=== PATIENT | female | born 1940 | race American Indian/Alaskan Native ===

== ENCOUNTER 2017-06-26 09:25 | Outpatient (CLI) | payer MEDICARE ==
--- NOTE | 2017-06-26 14:56 | Mammography Report ---
BILATERAL DIGITAL SCREENING MAMMOGRAM with CAD: 06/26/17 09:25:00 CLINICAL: Routine screening. COMPARISON:06/21/16 FINDINGS: The breasts are almost entirely fatty. No mass, architectural distortion or suspicious calcifications. IMPRESSION: No mammographic evidence of malignancy. BI-RADS CATEGORY: 2 - - Benign RECOMMENDATION: Routine mammographic screening in one year. COMMENT: Patient follow-up letters are generated by our [employer] application.
== END 2017-06-26 09:26 | disposition home or self-care (01) ==
LOC: SPVWC 09:25
PROVIDERS: ATTEND Internal Medicine
DX: Z12.31 Encounter for screening mammogram for malignant neoplasm of breast (principal)
CPT/HCPCS: 77067; G0202

== ENCOUNTER 2017-07-08 08:43 | Outpatient (CLI) | payer MEDICARE ==
--- NOTE | 2017-07-08 10:54 | Cat Scan Report ---
CT CHEST WITH CONTRAST: 07/08/17 08:43:00 CLINICAL: Abnormal chest x-ray. Comparison: None available. TECHNIQUE: Volumetric acquisition and 1.25 mm scan reconstructions after the uneventful intravenous injection of 100cc Omnipaque 300. Consent was obtained prior to the administration of contrast. FINDINGS: . No pulmonary nodule or mass. Mild thickening of the right major fissure. Normal heart, aorta and pulmonary vasculature. No hilar or mediastinal lymphadenopathy. No pleural effusion. The right hemidiaphragm is elevated and a significant portion of the liver is in the chest. The liver has an unusual shape with a large anterior left secondary to atrophy of segments 4A and 4B of the left lobe and segment 8 of the right lobe. No liver mass. The bile ducts and gallbladder are normalNormal thyroid, trachea and esophagus. No axillary or supraclavicular lymphadenopathy. The upper abdomen is unremarkable. 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 No suspicious bone lesions. IMPRESSION: 1. Elevation of the right hemidiaphragm but no right upper quadrant abdominal mass . 2. No lung mass or nodule. 3. Atrophy of hepatic segments 4A, 4B and 8. 4. No liver nodularity or mass. 5. No signs of portal hypertension.
== END 2017-07-08 08:44 | disposition home or self-care (01) ==
LOC: SPVWC 08:43
PROVIDERS: ATTEND Internal Medicine
DX: K72.90 Hepatic failure, unspecified without coma (principal); J98.6 Disorders of diaphragm; R93.8 Abnormal findings on diagnostic imaging of other specified body structures; M19.012 Primary osteoarthritis, left shoulder; M47.894 Other spondylosis, thoracic region
CPT/HCPCS: 71260; Q9967